=== PATIENT | male | born 1990 | race Caucasian/White ===

== ENCOUNTER 2019-11-01 20:43 | Emergency (ER) | payer BC, OTHER ==
[2019-11-01 20:59] VITALS: BP 136/75; PULSE 99
--- NOTE | 2019-11-01 21:29 | EDM.PDOC ---
ED HPI GENERAL MEDICAL PROBLEM - General Chief Complaint: ENT Problem Stated Complaint: FOOD STUCK IN THROAT Time Seen by Provider: 11/01/19 20:56 Source of Information: Reports: Patient History Limitations: Reports: No Limitations - History of Present Illness INITIAL COMMENTS - FREE TEXT/NARRATIVE: Mr. Hickey is a very pleasant 29-year-old gentleman with a past medical history significant for obesity and untreated GERD, who now presents to the ED with the sensation of food stuck in his esophagus. He states that he was eating a meat sandwich around 18:00 last night, 10/31/2019, when he developed the sensation of food being stuck in his esophagus. That sensation has persisted, and he states that he has not been able to keep anything down, including liquids, since. The patient states that he has had similar symptoms about 6 times over the past 5 years, however, the food bolus has always cleared itself. He has never previously had to come to the ED or received medical treatment for it. The patient states that he has never undergone an EGD. The patient states that he was told that he had some sort of a problem with his esophagus, and that he had surgery for it as a . Here in the ED, the patient is found to be hemodynamically stable, afebrile, saturating 99% on room air. Other than the sensation of food being stuck in his esophagus, the patient denies recent fever, chills, sore throat, ear pain, nasal or sinus congestion, cough, dyspnea, chest pain, palpitations, nausea, vomiting, constipation, diarrhea, abdominal pain, urinary symptoms, recent weight gain or weight loss, recent bloody bowel movements or black bowel movements, recent joint aches, headaches, or rashes. The patient's PCP is Ninoska Albright NP. Throat Pain Score (Numeric/FACES): 3 - Related Data Allergies Allergy/AdvReac Type Severity Reaction Status Date / Time No Known Allergies Allergy Verified 02/08/15 18:16 Home Meds: Home Meds . [No Known Home Meds] 11/01/19 [History] Past Medical History Gastrointestinal History: Reports: GERD (untreated), Other (See Below) (? congenital esophageal abnormality? s/p surgical repair as a ) Musculoskeletal History: Reports: Fracture (left thumb) Endocrine/Metabolic History: Reports: Obesity/BMI 30+ - Past Surgical History HEENT Surgical History: Reports: Tonsillectomy GI Surgical History: Reports: Other (See Below) (Esophageal repair as a ?) Social & Family History - Tobacco Use Smoking Status *Q: Current Some Day Smoker Tobacco Use Within Last Twelve Months: Smokeless Tobacco (Chews 1 can/10 days) - Caffeine Use Caffeine Use: Reports: Soda - Alcohol Use Alcohol Use History: Yes Alcohol Use Frequency: Socially (occasionally to excess) - Recreational Drug Use Recreational Drug Use: No - Living Situation & Occupation Living situation: Reports: Single, Alone 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 ED EXAM, GI/ABD - Physical Exam Exam: See Below Exam Limited By: No Limitations General Appearance: Alert, WD/WN, No Apparent Distress Eyes: Bilateral: Normal Appearance, EOMI Ears: Normal External Exam, Hearing Grossly Normal Nose: Normal Inspection Throat/Mouth: Normal Inspection, Normal Lips, Normal Voice, No Airway Compromise Head: Atraumatic, Normocephalic Neck: Normal Inspection, Full Range of Motion Respiratory/Chest: No Respiratory Distress, Lungs Clear, Normal Breath Sounds, No Accessory Muscle Use Cardiovascular: Normal Peripheral Pulses, Regular Rate, Rhythm, No Edema, No Gallop, No JVD, No Murmur, No Rub GI/Abdominal Exam: Normal Bowel Sounds, Soft, Non-Tender (including the epigastrium), No Organomegaly, No Distention, No Abnormal Bruit, No Mass (Male) Exam: Deferred Rectal (Males) Exam: Deferred Back Exam: Normal Inspection, Full Range of Motion, NT Extremities: Normal Inspection, Normal Range of Motion, No Pedal Edema, Normal Capillary Refill Neurological: Alert, Oriented, Normal Cognition, No Motor/Sensory Deficits Psychiatric: Normal Affect Skin Exam: Warm, Dry, Intact, Normal Color, No Rash Course - Vital Signs Last Recorded V/S: Last Vital Signs Temp 36.4 C 11/01/19 20:58 Pulse 99 11/01/19 20:58 Resp 20 11/01/19 20:58 BP 136/75 11/01/19 20:58 Pulse Ox 99 11/01/19 20:58 - Re-Assessments/Exams Free Text/Narrative Re-Assessment/Exam: 11/01/19 21:23 The triage nurse had given the patient some Sprite, and when I evaluated the patient, he told me that it was staying down. I gave him a glass of warm water, and that stayed down. I gave him a second glass of water, which she is currently drinking. If he manages to keep that down for about 10 minutes, then I think we can safely conclude that the food bolus has passed. 11/01/19 21:51 I have checked on the patient a couple of times, and he has been able to hold the water down without any difficulty, and no longer has a sensation of something stuck in his esophagus. It appears that it has cleared. Going forward, I am recommending that the patient start taking [id number] famotidine (Pepcid) once or twice a day on a regular basis, and I recommended that he follow-up with his PCP to arrange for an EGD. In the meantime, I advised that he make sure that when he eats meat, that he eats only small pieces and chews it well. The patient expressed understanding. Departure - Departure Time of Disposition: 21:52 Disposition: Home, Self-Care 01 Condition: Good Clinical Impression: Food impaction of esophagus - Discharge Information *PRESCRIPTION DRUG MONITORING PROGRAM REVIEWED*: Not Applicable *COPY OF PRESCRIPTION DRUG MONITORING REPORT IN PATIENT KWABENA: Not Applicable Referrals: Ninoska Albright CONSULTING MARINE ENGINEER [Primary Care Provider] - Forms: ED Department Discharge Additional Instructions: You were seen in the emergency room after developing the sensation of food being stuck in your esophagus after eating a meat sandwich last night. The sensation resolved after drinking some Sprite and water. Going forward, we recommend that you start taking [id number] famotidine (Pepcid), 1 tablet either once or twice a day, on a regular basis. We recommend that you follow-up with your PCP, Ninoska Albright NP, to arrange for an EGD (scope of your esophagus and stomach). In the meantime, we recommend that if you are eating meat, that you eat only small pieces and chew it well. If any other problems, including a recurrence of the sensation of food being stuck in your esophagus, please do not hesitate to return to the ER. Sepsis Event Note (ED) - Evaluation Sepsis Screening Result: No Definite Risk - Focused Exam Vital Signs: Vital Signs Temp Pulse Resp BP Pulse Ox 11/01/19 20:58 36.4 C 99 20 136/75 99
== END 2019-11-01 22:01 | disposition home or self-care (01) ==
LOC: JD.ED 20:43
DX: T18.128A Food in esophagus causing other injury, initial encounter (principal); E66.9 Obesity, unspecified; F17.220 Nicotine dependence, chewing tobacco, uncomplicated; Z68.36 Body mass index [BMI] 36.0-36.9, adult
CPT/HCPCS: 99282; 99283